=== PATIENT | male | born 1995 | race Caucasian/White ===

== ENCOUNTER 2017-05-16 13:10 | Emergency (ER) | payer MEDICAID ==
[2017-05-16 13:35] VITALS: BP 118/75; PULSE 86; RESP 18; TEMP 99.3; O2SAT 98
[2017-05-16] MEDS ORDERED: Oxycodone/Acetaminophen 5/325 mg Tab PO STA (14:58)
[2017-05-16] MEDS ORDERED: Oxycodone/Acetaminophen 5/325 mg Tab ONE (15:07)
--- NOTE | 2017-05-16 15:27 | RAD ---
PROCEDURE: Left tibia and fibula dated 05/16/2017 HISTORY: trauma COMPARISON: Comparison made with concurrent radiographs of the left knee. TECHNIQUE: Frontal and lateral views obtained. FINDINGS: BONES: No acute displaced fracture nor dislocation. Osseous structures intact. No cortical destructive changes. . JOINT SPACES: Joint spaces preserved so far as can be seen. Note that the ankle joint is incompletely visualized in the frontal projection. OTHER FINDINGS: None. IMPRESSION: No acute fractures.
--- NOTE | 2017-05-16 16:26 | RAD ---
PROCEDURE: Left Knee Radiographs. HISTORY: Pain. COMPARISON: None. FINDINGS: BONES: Normal. No fracture. JOINTS: Normal. No osteoarthritis. JOINT EFFUSION: Suspect small suprapatellar joint effusion OTHER FINDINGS: None. IMPRESSION: No evidence of acute displaced fracture nor dislocation. Suspect small suprapatellar joint effusion If symptoms persist or occult fracture suspected clinically recommend repeat radiographs in 5-10 days as most fractures should become radiographically evident in this timeframe
== END 2017-05-16 15:15 | disposition home or self-care (01) ==
LOC: H.ER 13:10
DX: S83.92XA Sprain of unspecified site of left knee, initial encounter (principal); W19.XXXA Unspecified fall, initial encounter
CPT/HCPCS: 29530; 73562; 73590; 99283; L1830